=== PATIENT | male | born 1970 | race Caucasian/White ===

== ENCOUNTER 2018-01-29 19:04 | Emergency (ER) | payer OTHER ==
[~2018-01-29] VITALS: Ht 177.8 cm; Wt 103.4 kg
[2018-01-29] MEDS ORDERED: NOHOMEMEDICATIONS (19:17)
[2018-01-29 19:38] LABS: ABSOLUTE MONOCYTES 0.6 thou/uL (0.0-1.2); ABSOLUTE NEUTROPHILS 2.7 thou/uL (1.6-8.1); BASOPHILS 0.7 %; EOSINOPHILS 0.6 %; HEMATOCRIT 44.4 % (42.0-52.0); HEMOGLOBIN 15.5 gm/dL (14.0-18.0); LYMPHOCYTES 23.8 %; MCH 30.3 pg (26.0-34.0); MCV 86.7 fL (80.0-100.0); MONOCYTES 13.3 %; MPV 8.4 fl. (7.2-11.1); NUCLEATED RBCS 0 /100WBC; PLATELET COUNT* 190 thou/uL (150-400); POLYS 61.6 %; RBC 5.12 mil/uL (4.50-6.00); RDW-CV 13.5 % (10.5-14.5); WBC 4.4 thou/uL (4.0-11.0)
[2018-01-29 19:46] LABS: ANION GAP 11 mmol/L (7-16); BUN 18 mg/dL (7-18); CALCIUM 8.5 mg/dL (8.5-10.1); CHLORIDE 101 mmol/L (98-107); CO2 26 mmol/L (21-32); CREATININE 1.1 mg/dL (0.6-1.3); GLUCOSE 181 mg/dL (70-99); POTASSIUM 3.2 mmol/L (3.5-5.1); SODIUM 138 mmol/L (136-145)
[2018-01-29 19:49] LABS: APTT 32.2 Seconds (25.0-31.3); PROTIME 10.4 Seconds (9.20-11.50)
[2018-01-29 19:53] LABS: ALBUMIN 3.8 g/dL (3.4-5.0); ALKALINE PHOSPHATASE 54 U/L (46-116); SGOT 20 U/L (15-37); SGPT 32 U/L (30-65); TOTAL BILIRUBIN 0.4 mg/dL (<0.1-1.0); TOTAL PROTEIN 7.6 g/dL (6.4-8.2); TROPONIN-I LEVEL <0.06 ng/mL (<0.06)
[2018-01-29] MEDS ORDERED: AMOXICILLIN500 M1 PO (22:00)
[2018-01-29 22:10] VITALS: BP 126/88
--- NOTE | 2018-01-31 17:59 | EKG ---
[place] [address] ELECTROCARDIOGRAM REPORT Name: WON HAWTHORNE Room: [facility]#: [id number] Admission: 01/29/18 Attend Phys: Discharge: 01/29/18 Date of : 74 Report #: [id number] THIS REPORT FOR: //name// [facility] ED Test Date: 2018-01-29 Test Time: 19:09:39 Pat Name: WON HAWTHORNE Department: Room: Gender: M Tube Blower: : 1970 Requested By: Asia Finnegan Order Number: [id number] MD: Dinh Akins Measurements Intervals [place] Rate: 75 P: 65 NH: 140 QRS: 60 QRSD: 104 T: 38 QT: 378 QTc: 423 Interpretive Statements Sinus rhythm No previous ECG available for comparison Electronically Signed On 01-31-2018 17:59:19 [employer] by Dinh Akins [email or web address] <ELECTRONICALLY SIGNED> By: Dinh Akins MD, [facility] 01/31/18 1759 1909 [id number] Dinh Akins MD, FACC /EPI
== END 2018-01-29 22:10 | disposition home or self-care (01) ==
LOC: M.ERS 19:04
PROVIDERS: Personal Emergency Response Attendant
DX: B34.9 Viral infection, unspecified (principal); E86.0 Dehydration; I49.3 Ventricular premature depolarization